=== PATIENT | male | born 1995 | race African-American/Black ===

== ENCOUNTER 2018-06-06 18:50 | Emergency (ER) | payer SELFPAY ==
[~2018-06-06] VITALS: Ht 190.5 cm; Wt 81.6 kg
[2018-06-06 19:16] VITALS: BP 95/57
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
[2018-06-06] MEDS ORDERED: NAPROXEN500 M2 ORAL (20:26)
[2018-06-06 20:35] VITALS: BP 100/64
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
== END 2018-06-06 20:35 ==
LOC: EMR 20:07
DX: S62.101A Fracture of unspecified carpal bone, right wrist, initial encounter for closed fracture (principal); W34.00XA Accidental discharge from unspecified firearms or gun, initial encounter; Y92.89 Other specified places as the place of occurrence of the external cause; F17.200 Nicotine dependence, unspecified, uncomplicated; Z88.0 Allergy status to penicillin
CPT/HCPCS: 99284